=== PATIENT | female | born 1990 | race Two or more races ===

== ENCOUNTER 2024-11-11 04:08 | Emergency (ER) | payer OTHER ==
[~2024-11-11] VITALS: Ht 157.5 cm; Wt 62.6 kg
[2024-11-11] MEDS ORDERED: ZYRTEC10 M3 PO (04:16)
[2024-11-11] MEDS ORDERED: KETOROLAC TROMETHAMINE 10 MG TABLET PO STA (06:57)
[2024-11-11] MEDS ORDERED: KETOROLAC TROMETHAMINE 10 MG TABLET PO ONE (07:39)
[2024-11-11 08:54] LABS: HEMATOCRIT 41.9 % (36.0-45.00); HEMOGLOBIN 14.7 g/dL (12.0-15.00); MEAN CELL VOLUME 87.6 fL (80.00-100.00); MEAN CORPUSCULAR HEMOGLOBIN 30.6 pg (27.00-32.0); MEAN CORPUSCULAR HGB CONC 34.9 g/dl (32.0-36.0); PLATELET COUNT 373 K/uL (150-450); RED BLOOD COUNT 4.78 M/uL (4.00-6.00)
[2024-11-11 09:32] LABS: CALCIUM 9.4 mg/dL (8.5-10.1); CREATININE SERUM 0.76 mg/dL (0.55-1.02); GFR 87.64; POTASSIUM 4.01 mEq/L (3.5-5.1)
[2024-11-11] MEDS ORDERED: PEPCID AC20 MG PO (10:23)
[2024-11-11] MEDS ORDERED: SINGULAIR10 MG PO (10:23)
[2024-11-11] MEDS ORDERED: AMOX1TAB5 PO (10:23)
== END 2024-11-11 10:34 | disposition home or self-care (01) ==
LOC: ER 04:11
PROVIDERS: General Practice
DX: J32.0 Chronic maxillary sinusitis (principal)